=== PATIENT | female | born 1985 | race African-American/Black ===

== ENCOUNTER 2017-01-04 02:20 | Inpatient (IN) | payer OTHER ==
[2017-01-04] VITALS (14 sets, daily range): BP systolic 92–144; BP diastolic 54–99
[~2017-01-04] VITALS: Ht 167.6 cm; Wt 71.0 kg
[2017-01-04 04:27] LABS: EOSINOPHIL (%) 0.1 % (0-5); HEMATOCRIT 34.2 % (36.0-46.0); IMMATURE GRANULOCYTE (%) 0.7 % (0.0-0.7); IMMATURE GRANULOCYTE COUNT 0.1 K/uL; INSTRUMENT ABS NEUTROPHIL CT 10.9 K/uL; LYMPHOCYTE COUNT 1.1 K/uL (1.0-2.8); MCH 26.1 PG (29.0-34.0); MCHC 32.5 G/DL (30.0-36.0); MCV 80.5 FL (83-99); MEAN PLAT.VOLUME 10.1 uM^3 (9.5-12.4); MONOCYTE (%) 4.7 % (3-12); MONOCYTE COUNT 0.6 K/uL (0-0.8); NEUTROPHIL COUNT 10.9 K/uL (1.8-6.4); PLATELET COUNT 200 K/uL (156-360); RBC DIS.WIDTH-CV 14.1 % (11.8-14.6); RBC DIS.WIDTH-SD 40.9 % (39-53); RED BLOOD COUNT 4.25 M/uL (3.80-5.20); WHITE BLOOD COUNT 12.7 K/uL (4.1-10.2)
[2017-01-05 07:30] LABS: BASOPHIL COUNT 0.1 K/uL (0-0.1); EOSINOPHIL (%) 0.5 % (0-5); EOSINOPHIL COUNT 0.1 K/uL (0-0.3); IMMATURE GRANULOCYTE (%) 0.6 % (0.0-0.7); IMMATURE GRANULOCYTE COUNT 0.1 K/uL; INSTRUMENT ABS NEUTROPHIL CT 11.9 K/uL; LYMPHOCYTE COUNT 3.3 K/uL (1.0-2.8); MCH 26.6 PG (29.0-34.0); MCHC 32.1 G/DL (30.0-36.0); MCV 82.8 FL (83-99); MONOCYTE (%) 11.1 % (3-12); MONOCYTE COUNT 1.9 K/uL (0-0.8); NEUTROPHIL (%) 68.4 % (45-76); NEUTROPHIL COUNT 11.9 K/uL (1.8-6.4); PLATELET COUNT 199 K/uL (156-360); RBC DIS.WIDTH-CV 14.3 % (11.8-14.6); RBC DIS.WIDTH-SD 42.4 % (39-53); WHITE BLOOD COUNT 17.4 K/uL (4.1-10.2)
[2017-01-05 07:32] LABS: RED BLOOD COUNT 3.38 M/uL (3.80-5.20)
[2017-01-05 07:38] VITALS: BP 109/69
[2017-01-05 15:32] VITALS: BP 105/65
[2017-01-05 23:00] VITALS: BP 117/61
[2017-01-06] MEDS ORDERED: IBUPROFEN800 MG PO (08:16)
[2017-01-06 08:18] VITALS: BP 118/55
== END 2017-01-06 11:00 | disposition home or self-care (01) | DRG 774 ==
LOC: LDRP-OP → 2WEST 02:21 → LDRP-OP 02-24 10:26
PROVIDERS: Advanced Practice Midwife
DX: O99.02 Anemia complicating childbirth (principal); D50.9 Iron deficiency anemia, unspecified; O75.3 Other infection during labor; N39.0 Urinary tract infection, site not specified; O71.82 Other specified trauma to perineum and vulva; Z3A.37 37 weeks gestation of pregnancy; Z37.0 Single live birth
CPT/HCPCS: 81003; 85025; 87086; J0595; J7120